=== PATIENT | male | born 1985 | race African-American/Black ===

== ENCOUNTER 2017-10-31 08:57 | Emergency (ER) | payer SELFPAY ==
[~2017-10-31] VITALS: Ht 182.9 cm; Wt 130.0 kg
[~2017-10-31 08:57] MED LIST: ENAL5TAB98 PO
[2017-10-31 08:58] VITALS: BP 164/94; PULSE 89; RESP 12; TEMP 99.8; O2SAT 99
[2017-10-31] MEDS ORDERED: IBUP1TAB7 PO (09:32)
[2017-10-31] MEDS ORDERED: AZIT500T2 PO (09:32)
--- NOTE | 2017-10-31 09:33 | PD ---
HPI Chief Complaint: ENT Complaint Time Seen by Provider: 09:29 Travel History International Travel<30 days: No Contact w/Intl Traveler<30days: No Traveled to known affect area: No History of Present Illness HPI 32-year-old male presents to emergency Department with complaint of sore throat since last night. Denies nasal congestion, ear pain. Denies fevers, headache, vomiting. Denies lump in throat, difficulty swallowing, unusual drooling. Reports painful swallowing. Other have been sick in the house with similar symptoms. He is not taking any medication or tried any treatments to alleviate symptoms. Symptoms are mild in severity. Pain is aggravated with swallowing. Allergies to penicillin. Does not establish primary care provider. Has no other medical complaints. No other modifying factors or associated signs and symptoms. PFSH Past Medical History Hypertension: Yes Influenza Vaccination: No Past Surgical History Surgical History: No Previous Surgery Social History Alcohol Use: Yes (ONCE A MONTH AND DRINKS WINE (OCCASIONALLY)) Tobacco Use: Yes (vape) Substance Use: Yes (MARIJUANA) Allergies-Medications (Allergen,Severity, Reaction): Coded Allergies: penicillin G (Unverified Allergy, Mild, RASHES AND HIVES, 10/31/17) Reported Meds & Prescriptions Reported Meds & Active Scripts Active Ibuprofen 800 Mg Tab 800 Mg PO Q6HR PRN Azithromycin 500 Mg Tab 500 Mg PO DAILY Review of Systems Except as stated in HPI: all other systems reviewed are Neg Physical Exam Narrative GENERAL: Well-nourished, well-developed black male patient, in no acute distress SKIN: Warm and dry. No rash. HEAD: Atraumatic. Normocephalic. EYES: Pupils equal and round at 3 mm with brisk reaction. No scleral icterus. No injection or drainage. PERRLA. ENT: Mucosa pink and dry. Pharynx with 2+ tonsils; erythema, exudate, and edema. No Uvular edema. No uvular, palatal, or tonsillar deviation. Airway patent. Voice is hoarse. EARS: Bilateral pinnae and external canals appear within normal limits. Bilateral tympanic membranes without erythema, dullness or perforation.. NECK: Trachea midline. Anterior cervical lymphadenopathy and tenderness. CARDIOVASCULAR: Regular rate and rhythm. No murmur appreciated. RESPIRATORY: No accessory muscle use. Clear to auscultation. Breath sounds equal bilaterally. GASTROINTESTINAL: Abdomen soft, non-tender, nondistended. Hepatic and splenic margins not palpable. Bowel sounds are active 4 quadrants. MUSCULOSKELETAL: No obvious deformities. No clubbing. No cyanosis. No edema. NEUROLOGICAL: Awake and alert. Oriented 3. No obvious cranial nerve deficits. Motor grossly within normal limits. Normal speech. Moves all extremities. PSYCHIATRIC: Appropriate mood and affect; insight and judgment normal. Data Data Last Documented VS Vital Signs Date Time Temp Pulse Resp B/P (MAP) Pulse Ox O2 Delivery O2 Flow Rate FiO2 10/31/17 08:58 99.8 89 12 164/94 (117) 99 Orders Orders Group A Rapid Strep Screen (10/31/17 09:24) Ed Discharge Order (10/31/17 09:33) Ibuprofen (Motrin) (10/31/17 09:45) [facility] Medical Decision Making Medical Screen Exam Complete: Yes Emergency Medical Condition: Yes Medical Record Reviewed: Yes Differential Diagnosis strep Pharyngitis, viral pharyngitis, exudative pharyngitis, less likely peritonsillar abscess Narrative Course 32-year-old male physical exam consistent with exudative pharyngitis. Rapid strep and ibuprofen ordered. Rapid strep pending. Penicillin allergic. Azithromycin, ibuprofen prescribed for home. Instructed patient to follow up with primary care provider. Patient verbalizes understanding and agreement with treatment plan. Patient is medically cleared and stable for discharge. Discussed reasons to return to the emergency department. Patient agrees with treatment plan. The patients vital signs are stable and the patient is stable for outpatient follow-up and treatment. Patient discharged home, stable and in no acute distress. Diagnosis Primary Impression: Exudative pharyngitis Referrals: [facility] Primary Care Physician Patient Instructions: General Instructions, Pharyngitis (ED) Additional Instructions: Take Antibiotics as prescribed and complete full course of antibiotics Throw away and change your toothbrush 24 hours after starting antibiotics Get plenty of sleep/rest Rest your voice Drink plenty of fluids to prevent dehydration Use warm saltwater gargles to soothe throat pain Use an air humidifier/turn off ceiling fans Use throat lozenges as needed for sore throat Use ibuprofen or acetaminophen as needed to relieve pain and fever Follow-up with your primary care provider within 2-4 days Return immediately to the emergency department with worsening of symptoms Med/Other Pt SpecificInfo: Prescription(s) given Scripts Ibuprofen (Ibuprofen) 800 Mg Tab 800 MG PO Q6HR Y for PAIN, #20 TAB 0 Refills Prov: Madalyn Araujo 10/31/17 Azithromycin (Azithromycin) 500 Mg Tab 500 MG PO DAILY for Infection, #5 TAB 0 Refills Prov: Madalyn Arauoj 10/31/17 Disposition: 01 DISCHARGE HOME Condition: Stable Madalyn Araujo Oct 31, 2017 09:33
[2017-10-31] MEDS ORDERED: IBUPROFEN 800 MG TAB PO ONE (09:45)
== END 2017-10-31 10:19 | disposition home or self-care (01) ==
LOC: NEPD 08:57
DX: J02.0 Streptococcal pharyngitis (principal); B95.0 Streptococcus, group A, as the cause of diseases classified elsewhere; Z72.0 Tobacco use; Z88.0 Allergy status to penicillin
CPT/HCPCS: 87081; 87880; 99284